=== PATIENT | female | born 1935 | race Caucasian/White ===

== ENCOUNTER 2016-03-12 10:23 | Emergency (ER) | payer OTHER ==
[~2016-03-12] VITALS: Ht 157.5 cm; Wt 56.7 kg
[~2016-03-12 10:23] MED LIST: ACETAMINOPHEN500 MG PO; ADVAIR 100/501 DISK; ADVAIR 250/501 DISK IH; ADVAIR HFA120 INHALA IH; AMBIEN5 MG PO; ANTI-DIARRHEAL2 M2 PO; ASCORBIC ACID500 M3 PO; ASPIR-TRIN325 M1 PO; ASPIRIN EC325 MG PO; ASPIRIN325 MG PO; ATARAX,VISTARIL25 MG PO; ATIVAN0.25 MG GT; ATIVAN0.5 MG PO; ATIVAN1 MG PO; Ambien PO; Ativan PO; BACTRIM,SEPT1 TABLET PO; BUDEPRION XL150 MG PO; BUPROPION HCL150 M2 PO; CARDIZEM CD,CA180 MG PO; CARDIZEM CD120 MG PO; CEFUROXIME500 MG PO; CELEBREX200 MG PO; CELEBREX400 MG PO; CIPRO500 MG PO; CLARITIN10 MG PO; CLOBETASOL PROP60 GM TP; COLACE100 MG PO; CORMAX50 M1 TP; CYCLOBENZAPRINE10 MG PO; CYCLOBENZAPRINE5 MG PO; CYMBALTA60 MG PO; Ceftin PO; Colace PO; DAILY VALUE1 EACH PO; DELTASONE20 M1 PO; DESYREL12.5 MG PO; DICYCLOMINE HCL10 MG PO; DOCUSATE SODIU100 MG PO; DULERA 100 MCG/13 GM IH; DULOXETINE HCL60 MG PO; Dulcolax PO; FAMOTIDINE20 MG PO; FLAGYL500 MG PO; FLEXERIL10 MG PO; FLEXERIL5 MG PO; FOLIC ACID1 MG PO; GABAPENTIN300 MG PO; HYDROCODON-ACE1 EAC7 PO; IBUPROFEN600 MG PO; KEFLEX500 MG PO; LEVAQUIN500 MG PO; LIDOCAINE700 MG TD; LORAZEPAM0.5 MG PO; MECLIZINE HCL12.5 M1 PO; METRONIDAZOLE500 MG PO; MIRAPEX1 MG PO; MOBIC7.5 MG PO; MOTRIN600 MG PO; MOTRIN800 MG PO; MUCINEX ALLERG180 MG PO; MUCINEX600 MG PO; NABUMETONE500 MG PO; NORCO 5/3251 TABLET PO; ONDANSETRON HCL4 MG PO; Oscal 500 w/Vitamin PO; PANTOPRAZOLE SO40 MG PO; PAROXETINE HCL20 MG PO; PAROXETINE HCL25 MG PO; PAXIL CR25 MG PO; PAXIL20 MG PO; PERCOCET 5/31 TABLET PO; POLYETHYLENE GL17 GM PO; PRESERVISIO1 CAPSULE PO; PRESERVISION A1 EAC2 PO; PRESERVISION T1 EACH PO; PRISTIQ50 MG PO; PROAIR HFA8.5 GM IH; PROMETHAZINE12.5 M1 PO; PROTONIX40 MG PO; QUETIAPINE FUMA50 MG PO; REFRESH LI300 DROP/1 BOTH EYES; REFRESH TEARS15 ML BOTH EYES; SENNA LAXATIVE8.6 MG PO; SENNA-TIME S T1 EACH PO; SENNA8.6 M1 PO; SEROQUEL12.5 MG PO; SEROQUEL50 MG PO; SKELAXIN800 MG PO; STOOL SOFTENER100 M1 PO; Senokot S,Pericolace PO; TEMOVATE 0.05%30 GM TP; THERAGRAN1 TABLET PO; TORADOL10 MG PO; TRAMADOL HCL50 MG PO; TRAZODONE; TRAZODONE HCL50 MG PO; TYLENOL EXTRA500 MG PO; TYLENOL REGULA325 MG PO; TYLENOL WITH C1 EACH PO; Theragran PO; ULTRAM50 MG PO; UNABLEOBTAIN; Ultram PO; VENTOLIN HFA18 GM IH; VIBRAMYCIN100 MG PO; WELLBUTRIN SR150 MG PO; WELLBUTRIN XL150 MG PO; Wellbutrin XL PO; ZOFRAN ODT4 MG PO; ZOFRAN ODT8 MG PO; ZOFRAN4 MG PO; ZOLPIDEM TARTRA10 MG PO; ZOLPIDEM TARTRAT5 MG PO
[2016-03-12 10:55] LABS: EOSINOPHIL (%) 1.8 % (0-5); EOSINOPHIL COUNT 0.1 K/uL (0-0.3); HEMATOCRIT 36.2 % (36.0-46.0); LYMPHOCYTE COUNT 1.3 K/uL (1.0-2.8); MCH 30.8 PG (29.0-34.0); MCHC 31.5 G/DL (30.0-36.0); MCV 97.8 FL (83-99); MEAN PLAT.VOLUME 9.7 uM^3 (9.5-12.4); MONOCYTE (%) 13.5 % (3-12); MONOCYTE COUNT 0.5 K/uL (0-0.8); NEUTROPHIL (%) 46.6 % (45-76); NEUTROPHIL COUNT 1.6 K/uL (1.8-6.4); PLATELET COUNT 211 K/uL (156-360); RBC DIS.WIDTH-CV 14.1 % (11.8-14.6); RBC DIS.WIDTH-SD 48.5 % (39-53); WHITE BLOOD COUNT 3.3 K/uL (4.1-10.2)
[2016-03-12 11:07] LABS: CHLORIDE 106 mEq/L (99-109); SODIUM 139 mEq/L (136-147)
[2016-03-12 11:09] LABS: GLUCOSE 102 mg/dL (70-99)
[2016-03-12 11:10] LABS: ANION GAP 8 MEQ/L (2-14)
[2016-03-12 11:11] LABS: TOTAL BILIRUBIN 0.4 mg/dL (0.0-1.0)
[2016-03-12 11:13] LABS: ALKALINE PHOSPHATASE 62 IU/L (3-129); GFR ESTIMATE (CALCULATED) > 59 mL/min/
[2016-03-12 11:14] LABS: UREA NITROGEN (BUN) 9 mg/dL (9-23)
[2016-03-12 11:25] LABS: ADD MIUA? NO; BILIRUBIN NEGATIVE; BLOOD NEGATIVE; COLOR YELLOW ((YELLOW)); GLUCOSE (STRIP) NEGATIVE; KETONES TRACE; LEUKOCYTES NEGATIVE; NITRITE NEGATIVE; PROTEIN (STRIP) NEGATIVE; SPECIFIC GRAVITY 1.015 (1.000-1.030); UCUL ADDED? NO
[2016-03-12] MEDS ORDERED: TRAMADOL HCL50 MG PO (14:03)
[2016-03-12 14:41] VITALS: BP 134/70
== END 2016-03-12 16:13 | disposition home or self-care (01) ==
LOC: EME 10:23
PROVIDERS: Emergency Medicine
DX: M54.5 Low back pain (principal); G89.29 Other chronic pain; F17.200 Nicotine dependence, unspecified, uncomplicated; Z87.442 Personal history of urinary calculi; Z96.641 Presence of right artificial hip joint; Z88.6 Allergy status to analgesic agent; Z71.6 Tobacco abuse counseling
CPT/HCPCS: 80053; 81003; 85025; 99281; 99285; J7030

== ENCOUNTER 2016-03-18 18:29 | Emergency (ER) | payer OTHER ==
[~2016-03-18] VITALS: Ht 157.5 cm; Wt 56.5 kg
[2016-03-18 22:04] LABS: ADD MIUA? NO; BILIRUBIN NEGATIVE; BLOOD NEGATIVE; COLOR YELLOW ((YELLOW)); GLUCOSE (STRIP) NEGATIVE; KETONES 15; LEUKOCYTES NEGATIVE; NITRITE NEGATIVE; PH, URINE 6.5 (5-8); PROTEIN (STRIP) NEGATIVE; SPECIFIC GRAVITY 1.015 (1.000-1.030); UCUL ADDED? NO
[2016-03-18 22:06] LABS: EOSINOPHIL (%) 1.9 % (0-5); EOSINOPHIL COUNT 0.1 K/uL (0-0.3); HEMATOCRIT 38.9 % (36.0-46.0); IMMATURE GRANULOCYTE (%) 0.2 % (0.0-0.7); IMMATURE GRANULOCYTE COUNT 0.1 K/uL; MCH 31.4 PG (29.0-34.0); MCHC 32.1 G/DL (30.0-36.0); MCV 97.7 FL (83-99); MEAN PLAT.VOLUME 9.3 uM^3 (9.5-12.4); MONOCYTE (%) 11.4 % (3-12); MONOCYTE COUNT 0.6 K/uL (0-0.8); NEUTROPHIL (%) 45.3 % (45-76); NEUTROPHIL COUNT 2.2 K/uL (1.8-6.4); PLATELET COUNT 209 K/uL (156-360); RBC DIS.WIDTH-SD 48.3 % (39-53); RED BLOOD COUNT 3.98 M/uL (3.80-5.20); WHITE BLOOD COUNT 4.8 K/uL (4.1-10.2)
[2016-03-18 22:09] LABS: CHLORIDE 104 mEq/L (99-109); POTASSIUM 3.7 mEq/L (3.7-5.4); SODIUM 141 mEq/L (136-147)
[2016-03-18 22:11] LABS: GLUCOSE 86 mg/dL (70-99)
[2016-03-18 22:12] LABS: ANION GAP 14 MEQ/L (2-14)
[2016-03-18 22:13] LABS: AMPHETAMINE NEGATIVE (500 ng/mL); BARBITURATES NEGATIVE (200 ng/mL); BENZODIAZEPINES NEGATIVE (150 ng/mL); COCAINE NEGATIVE (150 ng/mL); INTERNAL CONTROLS VALID? YES; METHADONE NEGATIVE (200 ng/mL); METHAMPHETAMINE NEGATIVE (500 ng/mL); OPIATES (MORPHINE) NEGATIVE (100 ng/mL); OXYCODONE NEGATIVE (100 ng/mL); PHENCYCLIDINE NEGATIVE (25 ng/mL); PROPOXYPHENE NEGATIVE (300 ng/mL); THC CANNABINOIDS NEGATIVE (50 ng/mL); TRICYCLIC ANTIDEPRESSANTS NEGATIVE (300 ng/mL)
[2016-03-18 22:13] LABS: TOTAL BILIRUBIN 0.4 mg/dL (0.0-1.0)
[2016-03-18 22:14] LABS: ALKALINE PHOSPHATASE 80 IU/L (3-129); SERUM ETHYL ALCOHOL < 10 mg/dL
[2016-03-18 22:15] LABS: GFR ESTIMATE (CALCULATED) > 59 mL/min/
[2016-03-18 22:16] LABS: UREA NITROGEN (BUN) 9 mg/dL (9-23)
[2016-03-18 22:24] LABS: TROP-I INTERPRETATION NEGATIVE; TROPONIN-I < 0.01 ng/mL (0.0-0.30)
[2016-03-19 01:42] VITALS: BP 122/60
== END 2016-03-19 01:42 | disposition home or self-care (01) ==
LOC: EME 18:29
PROVIDERS: Emergency Medicine
DX: R44.1 Visual hallucinations (principal); R51 Headache; Z96.641 Presence of right artificial hip joint; Z88.6 Allergy status to analgesic agent; Z88.1 Allergy status to other antibiotic agents; Z88.0 Allergy status to penicillin
CPT/HCPCS: 70450; 80053; 81003; 84443; 84484; 85025; 90839; 93005; 99281; 99283; G0480

== ENCOUNTER 2016-03-28 14:34 | Emergency (ER) | payer OTHER ==
[~2016-03-28] VITALS: Ht 157.5 cm; Wt 56.8 kg
[2016-03-28 16:35] LABS: HEMATOCRIT 38.6 % (36.0-46.0); MCH 31.4 PG (29.0-34.0); MCHC 32.4 G/DL (30.0-36.0); MEAN PLAT.VOLUME 9.9 uM^3 (9.5-12.4); PLATELET COUNT 198 K/uL (156-360); RBC DIS.WIDTH-CV 14.2 % (11.8-14.6); RBC DIS.WIDTH-SD 48.6 % (39-53); RED BLOOD COUNT 3.98 M/uL (3.80-5.20); WHITE BLOOD COUNT 5.9 K/uL (4.1-10.2)
[2016-03-28 16:41] LABS: CHLORIDE 109 mEq/L (99-109); POTASSIUM 4.1 mEq/L (3.7-5.4); SODIUM 142 mEq/L (136-147)
[2016-03-28 16:43] LABS: GLUCOSE 96 mg/dL (70-99)
[2016-03-28 16:45] LABS: ANION GAP 10 MEQ/L (2-14); TOTAL BILIRUBIN 0.3 mg/dL (0.0-1.0)
[2016-03-28 16:47] LABS: ALKALINE PHOSPHATASE 81 IU/L (3-129); GFR ESTIMATE (CALCULATED) > 59 mL/min/
[2016-03-28 16:48] LABS: UREA NITROGEN (BUN) 12 mg/dL (9-23)
[2016-03-28 17:11] LABS: ADD MIUA? YES; BILIRUBIN NEGATIVE; BLOOD NEGATIVE; COLOR YELLOW ((YELLOW)); GLUCOSE (STRIP) NEGATIVE; KETONES NEGATIVE; LEUKOCYTES NEGATIVE; NITRITE NEGATIVE; PH, URINE 6.5 (5-8); PROTEIN (STRIP) TRACE; SPECIFIC GRAVITY 1.023 (1.000-1.030); UROBILINOGEN 0.2 MG/DL (0.2-1.0)
[2016-03-28 17:54] LABS: BACTERIA NONE SEEN; CASTS NONE SEEN /LPF; CRYSTALS NONE SEEN; EPITHELIAL CELLS RARE; MUCUS NONE SEEN; RED BLOOD CELLS RARE /HPF (0-5); UCUL ADDED? NO; WHITE BLOOD CELLS RARE /HPF (0-5)
[2016-03-28] MEDS ORDERED: BENTYL20 MG PO (21:12)
[2016-03-28 22:11] VITALS: BP 151/72
== END 2016-03-28 22:16 | disposition home or self-care (01) ==
LOC: EME 14:34
PROVIDERS: Nurse Practitioner Family
DX: R10.9 Unspecified abdominal pain (principal); K21.9 Gastro-esophageal reflux disease without esophagitis; Z96.641 Presence of right artificial hip joint; Z87.442 Personal history of urinary calculi; F17.200 Nicotine dependence, unspecified, uncomplicated
CPT/HCPCS: 74177; 80053; 81003; 85027; 99281; 99285; J1885

== ENCOUNTER → 2016-05-03 | Outpatient (CLI) | payer OTHER ==
[~2016-05-03] MED LIST changes: +BENTYL20 MG PO
== END | disposition home or self-care (01) ==
LOC: AMB 08:28
DX: J34.89 Other specified disorders of nose and nasal sinuses (principal)
CPT/HCPCS: 88304

== ENCOUNTER 2016-06-07 20:21 | Emergency (ER) | payer OTHER ==
[~2016-06-07] VITALS: Ht 157.5 cm; Wt 58.0 kg
[2016-06-07 22:35] LABS: ADD MIUA? YES; BILIRUBIN NEGATIVE; BLOOD MODERATE; COLOR YELLOW ((YELLOW)); GLUCOSE (STRIP) NEGATIVE; KETONES NEGATIVE; LEUKOCYTES NEGATIVE; NITRITE NEGATIVE; PROTEIN (STRIP) NEGATIVE; SPECIFIC GRAVITY 1.018 (1.000-1.030); UROBILINOGEN 0.2 MG/DL (0.2-1.0)
[2016-06-07 22:40] LABS: BACTERIA RARE /HPF; EPITHELIAL CELLS RARE /HPF; MUCUS NONE SEEN /LPF; RED BLOOD CELLS TNTC /HPF (0-5); UCUL ADDED? NO; WHITE BLOOD CELLS 0-5 /HPF (0-5)
[2016-06-07 23:29] VITALS: BP 130/72
== END 2016-06-08 00:14 | disposition home or self-care (01) ==
LOC: EME 20:21
PROVIDERS: Emergency Medicine
DX: R07.81 Pleurodynia (principal); M54.5 Low back pain; M25.561 Pain in right knee; G89.29 Other chronic pain; X50.9XXA Other and unspecified overexertion or strenuous movements or postures, initial encounter; Z88.1 Allergy status to other antibiotic agents; Z88.6 Allergy status to analgesic agent; F17.200 Nicotine dependence, unspecified, uncomplicated
CPT/HCPCS: 71101; 72110; 81003; 99281; 99284; J3010

== ENCOUNTER 2016-06-18 13:26 | Emergency (ER) | payer OTHER ==
[~2016-06-18] VITALS: Ht 157.5 cm; Wt 57.6 kg
[2016-06-18 15:14] VITALS: BP 120/74
== END 2016-06-18 15:18 | disposition home or self-care (01) ==
LOC: EME 13:26
DX: M25.561 Pain in right knee (principal); M54.5 Low back pain; M25.461 Effusion, right knee; M54.2 Cervicalgia; R35.8 Other polyuria; R06.00 Dyspnea, unspecified; G89.29 Other chronic pain; Z72.0 Tobacco use
CPT/HCPCS: 99281; 99284

== ENCOUNTER 2016-06-20 17:55 | Emergency (ER) | payer OTHER ==
[~2016-06-20] VITALS: Ht 157.5 cm; Wt 56.3 kg
[2016-06-20 19:29] LABS: HEMATOCRIT 36.9 % (36.0-46.0); MCH 32.3 PG (29.0-34.0); MCHC 32.2 G/DL (30.0-36.0); MCV 100.3 FL (83-99); MEAN PLAT.VOLUME 9.3 uM^3 (9.5-12.4); PLATELET COUNT 220 K/uL (156-360); RBC DIS.WIDTH-CV 13.2 % (11.8-14.6); RBC DIS.WIDTH-SD 49.5 % (39-53); RED BLOOD COUNT 3.68 M/uL (3.80-5.20); WHITE BLOOD COUNT 5.2 K/uL (4.1-10.2)
[2016-06-20 19:53] LABS: CHLORIDE 107 mEq/L (99-109); POTASSIUM 3.9 mEq/L (3.7-5.4); SODIUM 142 mEq/L (136-147)
[2016-06-20 19:55] LABS: GLUCOSE 100 mg/dL (70-99)
[2016-06-20 19:56] LABS: ANION GAP 11 MEQ/L (2-14)
[2016-06-20 19:57] LABS: TOTAL BILIRUBIN 0.6 mg/dL (0.0-1.0)
[2016-06-20 19:58] LABS: ALKALINE PHOSPHATASE 65 IU/L (3-129)
[2016-06-20 19:59] LABS: GFR ESTIMATE (CALCULATED) > 59 mL/min/
[2016-06-20 20:00] LABS: UREA NITROGEN (BUN) 16 mg/dL (9-23)
[2016-06-20 20:02] LABS: LIPASE 12 U/L (1.0-51.0)
[2016-06-20 20:18] LABS: ADD MIUA? YES; BILIRUBIN NEGATIVE; BLOOD NEGATIVE; COLOR YELLOW ((YELLOW)); GLUCOSE (STRIP) NEGATIVE; KETONES 5; LEUKOCYTES NEGATIVE; NITRITE NEGATIVE; PROTEIN (STRIP) 30
[2016-06-20 20:32] LABS: BACTERIA NONE SEEN /HPF; EPITHELIAL CELLS RARE /HPF; HYALINE CASTS 0-5 /LPF; MUCUS 2+ /LPF; UCUL ADDED? NO; WHITE BLOOD CELLS 0-5 /HPF (0-5)
[2016-06-20 22:33] VITALS: BP 138/82
== END 2016-06-20 22:34 | disposition home or self-care (01) ==
LOC: EME 17:55
DX: G89.29 Other chronic pain (principal); M79.1 Myalgia; R30.0 Dysuria; J44.9 Chronic obstructive pulmonary disease, unspecified; Z72.0 Tobacco use; Z87.442 Personal history of urinary calculi; K21.9 Gastro-esophageal reflux disease without esophagitis; Z85.22 Personal history of malignant neoplasm of nasal cavities, middle ear, and accessory sinuses; Z88.5 Allergy status to narcotic agent; Z88.8 Allergy status to other drugs, medicaments and biological substances; Z88.1 Allergy status to other antibiotic agents; Z88.0 Allergy status to penicillin; Z88.6 Allergy status to analgesic agent
CPT/HCPCS: 80053; 81003; 83690; 85027; 99281; 99284; J7030

== ENCOUNTER 2016-07-25 22:04 | Emergency (ER) | payer OTHER ==
[~2016-07-25] VITALS: Ht 157.5 cm; Wt 57.5 kg
[2016-07-26] MEDS ORDERED: ULTRAM50 MG PO (00:08)
[2016-07-26 00:26] VITALS: BP 110/76
== END 2016-07-26 00:27 | disposition home or self-care (01) ==
LOC: EME 22:04
DX: M25.561 Pain in right knee (principal); M25.551 Pain in right hip; Z96.653 Presence of artificial knee joint, bilateral; Z96.641 Presence of right artificial hip joint; M25.461 Effusion, right knee
CPT/HCPCS: 73502; 73564; 99281; 99283

== ENCOUNTER 2016-08-02 18:50 | Emergency (ER) | payer OTHER ==
[~2016-08-02] VITALS: Ht 157.5 cm; Wt 57.6 kg
[2016-08-02 19:25] LABS: HEMATOCRIT 37.2 % (36.0-46.0); MCH 32.6 PG (29.0-34.0); MCHC 32.5 G/DL (30.0-36.0); MCV 100.3 FL (83-99); MEAN PLAT.VOLUME 9.8 uM^3 (9.5-12.4); PLATELET COUNT 215 K/uL (156-360); RBC DIS.WIDTH-CV 12.6 % (11.8-14.6); RBC DIS.WIDTH-SD 46.7 % (39-53); RED BLOOD COUNT 3.71 M/uL (3.80-5.20); WHITE BLOOD COUNT 5.6 K/uL (4.1-10.2)
[2016-08-02 19:37] LABS: CHLORIDE 103 mEq/L (99-109); POTASSIUM 3.5 mEq/L (3.7-5.4); SODIUM 141 mEq/L (136-147)
[2016-08-02 19:39] LABS: GLUCOSE 80 mg/dL (70-99)
[2016-08-02 19:40] LABS: ANION GAP 13 MEQ/L (2-14)
[2016-08-02 19:42] LABS: GFR ESTIMATE (CALCULATED) > 59 mL/min/
[2016-08-02 19:43] LABS: UREA NITROGEN (BUN) 8 mg/dL (9-23)
[2016-08-02 21:02] LABS: ERTH.SED.RATE 25 MM/HR (0-30)
[2016-08-02 23:47] VITALS: BP 136/96
== END 2016-08-02 23:47 | disposition home or self-care (01) ==
LOC: EME → EDBD 18:50 → EME 18:50
PROVIDERS: Emergency Medicine
DX: G44.209 Tension-type headache, unspecified, not intractable (principal); R13.10 Dysphagia, unspecified; Z88.0 Allergy status to penicillin; Z88.6 Allergy status to analgesic agent; F17.200 Nicotine dependence, unspecified, uncomplicated
CPT/HCPCS: 70450; 80048; 85027; 85651; 87651 90; 99281; 99284; J1200; J2765

== ENCOUNTER 2016-08-09 10:55 | Emergency (ER) | payer OTHER ==
[~2016-08-09] VITALS: Ht 157.5 cm; Wt 54.1 kg
[2016-08-09 13:26] LABS: EOSINOPHIL (%) 0.5 % (0-5); HEMATOCRIT 42.8 % (36.0-46.0); IMMATURE GRANULOCYTE (%) 0.3 % (0.0-0.7); INSTRUMENT ABS NEUTROPHIL CT 4.2 K/uL; LYMPHOCYTE COUNT 1.2 K/uL (1.0-2.8); MCH 31.9 PG (29.0-34.0); MCV 99.5 FL (83-99); MEAN PLAT.VOLUME 9.7 uM^3 (9.5-12.4); MONOCYTE (%) 11.1 % (3-12); MONOCYTE COUNT 0.7 K/uL (0-0.8); NEUTROPHIL (%) 67.9 % (45-76); NEUTROPHIL COUNT 4.2 K/uL (1.8-6.4); PLATELET COUNT 192 K/uL (156-360); RBC DIS.WIDTH-CV 12.6 % (11.8-14.6); RBC DIS.WIDTH-SD 46.8 % (39-53); WHITE BLOOD COUNT 6.2 K/uL (4.1-10.2)
[2016-08-09 13:43] LABS: CHLORIDE 105 mEq/L (99-109); POTASSIUM 3.6 mEq/L (3.7-5.4); SODIUM 140 mEq/L (136-147)
[2016-08-09 13:45] LABS: GLUCOSE 91 mg/dL (70-99)
[2016-08-09 13:46] LABS: ANION GAP 12 MEQ/L (2-14)
[2016-08-09 13:47] LABS: TOTAL BILIRUBIN 0.6 mg/dL (0.0-1.0)
[2016-08-09 13:48] LABS: ALKALINE PHOSPHATASE 62 IU/L (3-129)
[2016-08-09 13:49] LABS: GFR ESTIMATE (CALCULATED) > 59 mL/min/
[2016-08-09 13:50] LABS: UREA NITROGEN (BUN) 10 mg/dL (9-23)
[2016-08-09 13:52] LABS: LIPASE 19 U/L (1.0-51.0)
[2016-08-09 13:58] LABS: TROP-I INTERPRETATION NEGATIVE; TROPONIN-I < 0.01 ng/mL (0.0-0.30)
[2016-08-09 14:30] LABS: BILIRUBIN NEGATIVE; BLOOD NEGATIVE; COLOR YELLOW ((YELLOW)); GLUCOSE (STRIP) NEGATIVE; KETONES 20; LEUKOCYTES NEGATIVE; NITRITE NEGATIVE; PROTEIN (STRIP) NEGATIVE; SPECIFIC GRAVITY 1.012 (1.000-1.030); UROBILINOGEN 0.2 MG/DL (0.2-1.0)
[2016-08-09 14:34] LABS: ADD MIUA? NO; UCUL ADDED? NO
[2016-08-09 19:17] VITALS: BP 116/69
== END 2016-08-09 19:19 | disposition home or self-care (01) ==
LOC: EME 10:55
PROVIDERS: Emergency Medicine
DX: R13.10 Dysphagia, unspecified (principal); G89.29 Other chronic pain; R10.30 Lower abdominal pain, unspecified; M54.9 Dorsalgia, unspecified; K21.9 Gastro-esophageal reflux disease without esophagitis; Z87.442 Personal history of urinary calculi; Z88.6 Allergy status to analgesic agent; Z88.1 Allergy status to other antibiotic agents; Z88.0 Allergy status to penicillin; Z87.891 Personal history of nicotine dependence; Z96.641 Presence of right artificial hip joint; Z88.5 Allergy status to narcotic agent
CPT/HCPCS: 74177; 80053; 81003; 83690; 84484; 85025; 92610 GN; 93005; 99281; 99285; J7040

== ENCOUNTER 2016-08-16 11:16 | Observation (INO) | payer OTHER ==
[~2016-08-16] VITALS: Ht 157.5 cm; Wt 56.6 kg
[2016-08-16 12:33] LABS: EOSINOPHIL COUNT 0.1 K/uL (0-0.3); HEMATOCRIT 43.3 % (36.0-46.0); IMMATURE GRANULOCYTE (%) 0.2 % (0.0-0.7); INSTRUMENT ABS NEUTROPHIL CT 3.4 K/uL; MCH 32.3 PG (29.0-34.0); MCHC 32.3 G/DL (30.0-36.0); MCV 99.8 FL (83-99); MEAN PLAT.VOLUME 11.3 uM^3 (9.5-12.4); MONOCYTE (%) 8.7 % (3-12); MONOCYTE COUNT 0.4 K/uL (0-0.8); NEUTROPHIL (%) 70.2 % (45-76); NEUTROPHIL COUNT 3.4 K/uL (1.8-6.4); PLATELET COUNT 234 K/uL (156-360); RBC DIS.WIDTH-CV 12.3 % (11.8-14.6); RBC DIS.WIDTH-SD 45.7 % (39-53); RED BLOOD COUNT 4.34 M/uL (3.80-5.20); WHITE BLOOD COUNT 4.8 K/uL (4.1-10.2)
[2016-08-16 13:31] LABS: CHLORIDE 104 mEq/L (99-109); SODIUM 140 mEq/L (136-147)
[2016-08-16 13:33] LABS: GLUCOSE 88 mg/dL (70-99); POTASSIUM 4.5 mEq/L (3.7-5.4)
[2016-08-16 13:34] LABS: ANION GAP 13 MEQ/L (2-14)
[2016-08-16 13:35] LABS: TOTAL BILIRUBIN 0.5 mg/dL (0.0-1.0)
[2016-08-16 13:37] LABS: ALKALINE PHOSPHATASE 65 IU/L (3-129); GFR ESTIMATE (CALCULATED) > 59 mL/min/
[2016-08-16 13:38] LABS: UREA NITROGEN (BUN) 11 mg/dL (9-23)
[2016-08-16 17:32] LABS: ADD MIUA? YES; BILIRUBIN NEGATIVE; BLOOD SMALL; COLOR YELLOW ((YELLOW)); GLUCOSE (STRIP) NEGATIVE; KETONES 80; LEUKOCYTES NEGATIVE; NITRITE NEGATIVE; PROTEIN (STRIP) NEGATIVE; SPECIFIC GRAVITY 1.013 (1.000-1.030); UROBILINOGEN 0.2 MG/DL (0.2-1.0)
[2016-08-16 17:49] LABS: BACTERIA RARE /HPF; EPITHELIAL CELLS RARE /HPF; MUCUS TRACE /LPF; RED BLOOD CELLS 0-5 /HPF (0-5); UCUL ADDED? NO; WHITE BLOOD CELLS 0-5 /HPF (0-5)
[2016-08-16] MEDS ORDERED: CYMBALTA60 MG PO (20:40)
[2016-08-16] MEDS ORDERED: PRESERVISION T1 EACH PO (20:41)
[2016-08-16] MEDS ORDERED: TYLENOL ARTHRI650 MG PO (20:41)
[2016-08-16] MEDS ORDERED: DULERA 100 MCG/13 GM IH (20:42)
[2016-08-16] MEDS ORDERED: REFRESH TEARS15 ML BOTH EYES (20:42)
[2016-08-16] MEDS ORDERED: DULERA 200 MCG/13 GM IH (20:43)
[2016-08-16] MEDS ORDERED: CLOBETASOL PROP60 GM TP (20:43)
[2016-08-16] MEDS ORDERED: PROAIR HFA8.5 GM IH (20:44)
[2016-08-16] MEDS ORDERED: LORAZEPAM0.5 MG PO (20:45)
[2016-08-16] MEDS ORDERED: SENOKOT,SENN1 TABLET PO (20:46)
[2016-08-16] MEDS ORDERED: MELATONIN10 M1 PO (20:46)
[2016-08-17 00:03] VITALS: BP 132/72
[2016-08-17 08:25] VITALS: BP 120/67
[2016-08-17 15:20] VITALS: BP 110/64
[2016-08-18] VITALS: BP 111/57
[2016-08-18 03:48] VITALS: BP 111/57
[2016-08-18 08:06] VITALS: BP 128/63
[2016-08-18 16:05] VITALS: BP 128/68
[2016-08-18 18:36] LABS: ADD MIUA? YES; BILIRUBIN NEGATIVE; BLOOD LARGE; COLOR YELLOW ((YELLOW)); GLUCOSE (STRIP) NEGATIVE; KETONES NEGATIVE; LEUKOCYTES NEGATIVE; NITRITE NEGATIVE; PROTEIN (STRIP) NEGATIVE; SPECIFIC GRAVITY 1.014 (1.000-1.030); UROBILINOGEN 0.2 MG/DL (0.2-1.0)
[2016-08-18 18:51] LABS: BACTERIA RARE /HPF; CALCIUM OXALATE CRYSTALS 2+ /HPF; EPITHELIAL CELLS RARE /HPF; MUCUS TRACE /LPF; RED BLOOD CELLS TNTC /HPF (0-5); WHITE BLOOD CELLS 0-5 /HPF (0-5)
[2016-08-18 23:57] VITALS: BP 112/58
[2016-08-19 08:08] VITALS: BP 117/64
[2016-08-19 15:14] VITALS: BP 110/68
[2016-08-19 23:40] VITALS: BP 121/74
[2016-08-20 08:00] VITALS: BP 132/77
[2016-08-20 15:37] VITALS: BP 121/67
[2016-08-20] MEDS ORDERED: ZOLPIDEM TARTRAT5 MG PO (15:40)
[2016-08-20] MEDS ORDERED: LORAZEPAM0.5 MG PO (15:40)
== END 2016-08-20 16:06 ==
LOC: EME 11:16 → 5SOUTH 22:40 → EDOF 22:40 → 5SOUTH 23:38
PROVIDERS: Emergency Medicine; Internal Medicine
DX: R62.7 Adult failure to thrive (principal); R53.1 Weakness; J44.9 Chronic obstructive pulmonary disease, unspecified; M54.5 Low back pain; I47.1 Supraventricular tachycardia; R52 Pain, unspecified; F32.9 Major depressive disorder, single episode, unspecified; K21.9 Gastro-esophageal reflux disease without esophagitis; G43.909 Migraine, unspecified, not intractable, without status migrainosus; F60.3 Borderline personality disorder; F03.90 Unspecified dementia, unspecified severity, without behavioral disturbance, psychotic disturbance, mood disturbance, and anxiety; Z96.659 Presence of unspecified artificial knee joint; F41.9 Anxiety disorder, unspecified; F09 Unspecified mental disorder due to known physiological condition; R21 Rash and other nonspecific skin eruption; Z87.891 Personal history of nicotine dependence
CPT/HCPCS: 71010; 80053; 81003; 85025; 93005; 94640; 94640 76; 99202; 99281; 99285; G0378; G8978 GP CI; G8979 GP CH; G8987 GO CI; G8988 GO CH; J1644; J1885; J7030

== ENCOUNTER 2016-09-05 14:10 | Emergency (ER) | payer OTHER ==
[~2016-09-05] VITALS: Ht 160 cm; Wt 60.0 kg
[~2016-09-05 14:10] MED LIST changes: +DULERA 200 MCG/13 GM IH; +MELATONIN10 M1 PO; +SENOKOT,SENN1 TABLET PO; +TYLENOL ARTHRI650 MG PO
[2016-09-05 17:28] VITALS: BP 128/67
== END 2016-09-05 17:29 | disposition home or self-care (01) ==
LOC: EME 14:10
DX: G89.29 Other chronic pain (principal); M54.5 Low back pain; Z79.891 Long term (current) use of opiate analgesic; K21.9 Gastro-esophageal reflux disease without esophagitis; F32.9 Major depressive disorder, single episode, unspecified; Z87.442 Personal history of urinary calculi; Z85.22 Personal history of malignant neoplasm of nasal cavities, middle ear, and accessory sinuses; Z90.49 Acquired absence of other specified parts of digestive tract; Z87.891 Personal history of nicotine dependence; Z88.0 Allergy status to penicillin; Z88.5 Allergy status to narcotic agent; Z96.641 Presence of right artificial hip joint
CPT/HCPCS: 99281; 99284

== ENCOUNTER 2016-10-23 22:20 | Emergency (ER) | payer OTHER ==
[~2016-10-23] VITALS: Ht 157.5 cm; Wt 60.1 kg
[2016-10-24 02:29] VITALS: BP 146/70
== END 2016-10-24 02:31 | disposition home or self-care (01) ==
LOC: EME 22:20
DX: R22.41 Localized swelling, mass and lump, right lower limb (principal); J45.909 Unspecified asthma, uncomplicated; Z87.442 Personal history of urinary calculi; Z96.641 Presence of right artificial hip joint; Z87.891 Personal history of nicotine dependence; Z88.6 Allergy status to analgesic agent; Z88.5 Allergy status to narcotic agent
CPT/HCPCS: 93971; 99281; 99285

== ENCOUNTER 2016-11-11 10:48 | Emergency (ER) | payer OTHER ==
[~2016-11-11] VITALS: Ht 157.5 cm; Wt 54.4 kg
[2016-11-11 11:50] LABS: MCHC 32.2 G/DL (30.0-36.0); MCV 99.4 FL (83-99); PLATELET COUNT 220 K/uL (156-360); RBC DIS.WIDTH-CV 12.4 % (11.8-14.6); RBC DIS.WIDTH-SD 45.7 % (39-53); RED BLOOD COUNT 3.62 M/uL (3.80-5.20); WHITE BLOOD COUNT 4.7 K/uL (4.1-10.2)
[2016-11-11 11:59] LABS: CHLORIDE 108 mEq/L (99-109); POTASSIUM 4.1 mEq/L (3.7-5.4); SODIUM 143 mEq/L (136-147)
[2016-11-11 12:00] LABS: GLUCOSE 89 mg/dL (70-99)
[2016-11-11 12:02] LABS: ANION GAP 10 MEQ/L (2-14)
[2016-11-11 12:04] LABS: GFR ESTIMATE (CALCULATED) > 59 mL/min/
[2016-11-11 12:05] LABS: UREA NITROGEN (BUN) 12 mg/dL (9-23)
[2016-11-11 12:36] LABS: ADD MIUA? YES; BILIRUBIN NEGATIVE; BLOOD NEGATIVE; COLOR YELLOW ((YELLOW)); GLUCOSE (STRIP) NEGATIVE; KETONES NEGATIVE; LEUKOCYTES TRACE; NITRITE NEGATIVE; PROTEIN (STRIP) NEGATIVE; SPECIFIC GRAVITY 1.013 (1.000-1.030); UROBILINOGEN 0.2 MG/DL (0.2-1.0)
[2016-11-11 12:38] VITALS: BP 123/73
[2016-11-11 12:41] LABS: BACTERIA RARE /HPF; CALCIUM OXALATE CRYSTALS 2+ /HPF; EPITHELIAL CELLS RARE /HPF; MUCUS TRACE /LPF; RED BLOOD CELLS 0-5 /HPF (0-5); UCUL ADDED? NO; WHITE BLOOD CELLS 0-5 /HPF (0-5)
== END 2016-11-11 15:39 | disposition home or self-care (01) ==
LOC: EME 10:48
PROVIDERS: Emergency Medicine
DX: G89.29 Other chronic pain (principal); M54.5 Low back pain; E86.0 Dehydration; L40.9 Psoriasis, unspecified; J45.909 Unspecified asthma, uncomplicated; K21.9 Gastro-esophageal reflux disease without esophagitis; M41.9 Scoliosis, unspecified; F03.90 Unspecified dementia, unspecified severity, without behavioral disturbance, psychotic disturbance, mood disturbance, and anxiety; F32.9 Major depressive disorder, single episode, unspecified; F41.9 Anxiety disorder, unspecified; Z96.641 Presence of right artificial hip joint; Z87.442 Personal history of urinary calculi; Z87.891 Personal history of nicotine dependence; Z88.0 Allergy status to penicillin; Z60.2 Problems related to living alone
CPT/HCPCS: 80048; 81003; 85027; 86850; 86900; 86901; 93005; 99281; 99285; J2405; J7030; Q0177

== ENCOUNTER → 2016-11-24 | Outpatient (CLI) | payer OTHER | END | disposition home or self-care (01) | DX: R13.11 Dysphagia, oral phase (principal); R13.13 Dysphagia, pharyngeal phase; K21.9 Gastro-esophageal reflux disease without esophagitis | CPT/HCPCS: 92611 GN; G8996 GN; G8997 GN; G8998 GN ==

== ENCOUNTER → 2017-02-02 | Outpatient (CLI) | payer OTHER ==
[~2017-02-02] VITALS: Ht 157.5 cm; Wt 58.0 kg
[~2017-02-02] MED LIST changes: +CYANOCOBAL1000 MCG/2 IM; +DIPROSONE 0.05%15 GM TP; +MICROZIDE12.5 M1 PO; +REMERON15 M2 PO; +ULTRACET1 TABLET PO
== END | disposition home or self-care (01) ==
LOC: AMB 09:30 → OPR 02-08 10:00 → AMB 02-08 10:00
DX: K22.2 Esophageal obstruction (principal); K21.9 Gastro-esophageal reflux disease without esophagitis; I10 Essential (primary) hypertension; J44.9 Chronic obstructive pulmonary disease, unspecified; F41.8 Other specified anxiety disorders; D51.9 Vitamin B12 deficiency anemia, unspecified; F17.200 Nicotine dependence, unspecified, uncomplicated; Z88.0 Allergy status to penicillin
CPT/HCPCS: 88305; J1885

== ENCOUNTER → 2017-04-19 | Outpatient (CLI) | payer OTHER ==
[~2017-04-19] VITALS: Ht 157.5 cm; Wt 58.1 kg
== END | disposition home or self-care (01) ==
LOC: AMB 04-13 08:00 → OPR 04-13 09:30 → AMB 10:45
PROC: 0D738ZZ Dilation of Lower Esophagus, Via Natural or Artificial Opening Endoscopic (ICD-10-PCS; principal; 2017-04-19)
DX: K22.2 Esophageal obstruction (principal); K44.9 Diaphragmatic hernia without obstruction or gangrene; R13.10 Dysphagia, unspecified; K21.9 Gastro-esophageal reflux disease without esophagitis; I10 Essential (primary) hypertension; M19.90 Unspecified osteoarthritis, unspecified site; F17.200 Nicotine dependence, unspecified, uncomplicated; L40.9 Psoriasis, unspecified; E53.8 Deficiency of other specified B group vitamins; Z96.641 Presence of right artificial hip joint; Z96.653 Presence of artificial knee joint, bilateral; Z96.619 Presence of unspecified artificial shoulder joint; Z82.3 Family history of stroke; Z83.3 Family history of diabetes mellitus; Z88.1 Allergy status to other antibiotic agents; Z88.5 Allergy status to narcotic agent; Z88.8 Allergy status to other drugs, medicaments and biological substances

== ENCOUNTER → 2017-06-08 | Outpatient (CLI) | payer OTHER ==
[~2017-06-08] VITALS: Ht 157.5 cm; Wt 64.0 kg
[~2017-06-08] MED LIST changes: +ACID REDUCER20 MG PO; +CYANOCOBALAM1000 MCG PO; +DUONEB 2.5-0.5 M3 ML AEROSOL; +HYDROCHLOROTHIA25 MG PO; +LIDODERM 5% P1 PATCH TD; -MICROZIDE12.5 M1 PO; +REFRESH CONTACT12 ML BOTH EYES; +TEMOVATE 0.05%60 GM TP
== END | disposition home or self-care (01) ==
LOC: AMB 08:44
DX: K22.2 Esophageal obstruction (principal); K44.9 Diaphragmatic hernia without obstruction or gangrene; R13.10 Dysphagia, unspecified; K21.9 Gastro-esophageal reflux disease without esophagitis; D64.9 Anemia, unspecified; J44.9 Chronic obstructive pulmonary disease, unspecified; I10 Essential (primary) hypertension; K12.0 Recurrent oral aphthae; K58.9 Irritable bowel syndrome, unspecified; F17.200 Nicotine dependence, unspecified, uncomplicated; Z82.3 Family history of stroke; Z83.3 Family history of diabetes mellitus; Z88.5 Allergy status to narcotic agent; Z88.1 Allergy status to other antibiotic agents; Z88.8 Allergy status to other drugs, medicaments and biological substances
CPT/HCPCS: 93005

== ENCOUNTER 2017-06-11 18:29 | Emergency (ER) | payer OTHER ==
[~2017-06-11] VITALS: Ht 157.5 cm; Wt 68.5 kg
[2017-06-11 19:42] LABS: HEMATOCRIT 32.5 % (36.0-46.0); HEMOGLOBIN 10.6 G/DL (11.9-15.5); MCH 32.3 PG (29.0-34.0); MCHC 32.6 G/DL (30.0-36.0); MCV 99.1 FL (83-99); PLATELET COUNT 290 K/uL (156-360); RBC DIS.WIDTH-CV 13.2 % (11.8-14.6); RBC DIS.WIDTH-SD 48.3 % (39-53); RED BLOOD COUNT 3.28 M/uL (3.80-5.20); WHITE BLOOD COUNT 6.1 K/uL (4.1-10.2)
[2017-06-11 20:07] LABS: TROP-I INTERPRETATION NEGATIVE; TROPONIN-I < 0.01 ng/mL (0.0-0.30)
[2017-06-11 20:17] LABS: ALBUMIN 3.8 g/dL (3.2-4.8); CHLORIDE 108 mEq/L (99-109); POTASSIUM 4.2 mEq/L (3.7-5.4); SODIUM 143 mEq/L (136-147)
[2017-06-11 20:19] LABS: GLUCOSE 84 mg/dL (70-99); TOTAL PROTEIN 6.3 g/dL (6.4-8.3)
[2017-06-11 20:21] LABS: TOTAL BILIRUBIN 0.1 mg/dL (0.0-1.0)
[2017-06-11 20:23] LABS: ALKALINE PHOSPHATASE 85 IU/L (3-129); CREATININE 0.8 mg/dL (0.6-1.3); GFR ESTIMATE (CALCULATED) > 59 mL/min/
[2017-06-11 20:24] LABS: AST (GOT) 17 IU/L (2-34); UREA NITROGEN (BUN) 18 mg/dL (9-23)
[2017-06-11 20:26] LABS: ALT (GPT) 9 IU/L (3-49); LIPASE 27 U/L (1.0-51.0)
[2017-06-11 20:49] LABS: APPEARANCE CLEAR ((CLEAR)); BILIRUBIN NEGATIVE; BLOOD NEGATIVE; COLOR YELLOW ((YELLOW)); GLUCOSE (STRIP) NEGATIVE; KETONES NEGATIVE; LEUKOCYTES NEGATIVE; NITRITE NEGATIVE; PROTEIN (STRIP) NEGATIVE; SPECIFIC GRAVITY 1.017 (1.000-1.030); UCUL ADDED? NO; UROBILINOGEN 0.2 MG/DL (0.2-1.0)
[2017-06-11 23:52] VITALS: BP 132/86
== END 2017-06-11 23:53 | disposition home or self-care (01) ==
LOC: EME 18:29
PROVIDERS: Physician Assistant
DX: R10.9 Unspecified abdominal pain (principal); N20.0 Calculus of kidney; Z87.442 Personal history of urinary calculi; K21.9 Gastro-esophageal reflux disease without esophagitis; F03.90 Unspecified dementia, unspecified severity, without behavioral disturbance, psychotic disturbance, mood disturbance, and anxiety; M41.9 Scoliosis, unspecified; F41.9 Anxiety disorder, unspecified; M06.9 Rheumatoid arthritis, unspecified; Z96.641 Presence of right artificial hip joint; J45.909 Unspecified asthma, uncomplicated; F17.200 Nicotine dependence, unspecified, uncomplicated; Z88.5 Allergy status to narcotic agent; Z88.6 Allergy status to analgesic agent; Z88.1 Allergy status to other antibiotic agents; Z88.0 Allergy status to penicillin
CPT/HCPCS: 71046; 74177; 80053; 81003; 83690; 84484; 85027; 93005; 99281; 99285; J1100; J1885; J7120

== ENCOUNTER 2017-06-13 10:46 | Emergency (ER) | payer OTHER ==
[~2017-06-13] VITALS: Ht 157.5 cm; Wt 68.5 kg
[2017-06-13 11:36] LABS: BASOPHIL (%) 0.2 % (0-1); EOSINOPHIL (%) 1.2 % (0-5); EOSINOPHIL COUNT 0.1 K/uL (0-0.3); HEMATOCRIT 30.1 % (36.0-46.0); HEMOGLOBIN 9.7 G/DL (11.9-15.5); IMMATURE GRANULOCYTE (%) 0.4 % (0.0-0.7); LYMPHOCYTE (%) 20.1 % (15-42); MCH 32.1 PG (29.0-34.0); MCHC 32.2 G/DL (30.0-36.0); MCV 99.7 FL (83-99); MONOCYTE (%) 13.7 % (3-12); MONOCYTE COUNT 1.3 K/uL (0-0.8); NEUTROPHIL (%) 64.4 % (45-76); NEUTROPHIL COUNT 6.3 K/uL (1.8-6.4); PLATELET COUNT 250 K/uL (156-360); RBC DIS.WIDTH-CV 13.5 % (11.8-14.6); RBC DIS.WIDTH-SD 49.1 % (39-53); RED BLOOD COUNT 3.02 M/uL (3.80-5.20); WHITE BLOOD COUNT 9.8 K/uL (4.1-10.2)
[2017-06-13 11:44] LABS: CHLORIDE 109 mEq/L (99-109); POTASSIUM 4.1 mEq/L (3.7-5.4); SODIUM 143 mEq/L (136-147)
[2017-06-13 11:46] LABS: GLUCOSE 86 mg/dL (70-99)
[2017-06-13 11:49] LABS: CREATININE 0.7 mg/dL (0.6-1.3); GFR ESTIMATE (CALCULATED) > 59 mL/min/
[2017-06-13 11:50] LABS: UREA NITROGEN (BUN) 15 mg/dL (9-23)
[2017-06-13 11:57] LABS: TROP-I INTERPRETATION NEGATIVE; TROPONIN-I < 0.01 ng/mL (0.0-0.30)
[2017-06-13 15:21] VITALS: BP 134/78
== END 2017-06-13 15:49 | disposition home or self-care (01) ==
LOC: EME 10:46
PROVIDERS: Emergency Medicine
DX: R07.89 Other chest pain (principal); J44.9 Chronic obstructive pulmonary disease, unspecified; F17.200 Nicotine dependence, unspecified, uncomplicated; F03.90 Unspecified dementia, unspecified severity, without behavioral disturbance, psychotic disturbance, mood disturbance, and anxiety; K21.9 Gastro-esophageal reflux disease without esophagitis; M06.9 Rheumatoid arthritis, unspecified; Z96.641 Presence of right artificial hip joint; Z88.5 Allergy status to narcotic agent; Z88.6 Allergy status to analgesic agent; Z88.1 Allergy status to other antibiotic agents
CPT/HCPCS: 71045; 71275; 80048; 83880; 84484; 85025; 93005; 99281; 99284; J1885

== ENCOUNTER 2017-06-28 09:32 | Emergency (ER) | payer OTHER ==
[~2017-06-28] VITALS: Ht 157.5 cm; Wt 68.5 kg
[2017-06-28 14:03] VITALS: BP 138/79
== END 2017-06-28 14:04 | disposition home or self-care (01) ==
LOC: EME 09:32
DX: S20.211A Contusion of right front wall of thorax, initial encounter (principal); W01.0XXA Fall on same level from slipping, tripping and stumbling without subsequent striking against object, initial encounter; F03.90 Unspecified dementia, unspecified severity, without behavioral disturbance, psychotic disturbance, mood disturbance, and anxiety; J45.909 Unspecified asthma, uncomplicated; Z87.442 Personal history of urinary calculi; Z88.0 Allergy status to penicillin; Z90.49 Acquired absence of other specified parts of digestive tract; F17.200 Nicotine dependence, unspecified, uncomplicated
CPT/HCPCS: 71100; 99281; 99285; J1885; J7040

== ENCOUNTER 2017-07-21 12:57 | Observation (INO) | payer OTHER ==
[~2017-07-21] VITALS: Ht 157.5 cm; Wt 56.8 kg
[2017-07-21 14:44] LABS: BASOPHIL (%) 0.2 % (0-1); EOSINOPHIL (%) 0.5 % (0-5); HEMATOCRIT 35.8 % (36.0-46.0); HEMOGLOBIN 11.3 G/DL (11.9-15.5); IMMATURE GRANULOCYTE (%) 0.5 % (0.0-0.7); LYMPHOCYTE (%) 23.4 % (15-42); LYMPHOCYTE COUNT 1.4 K/uL (1.0-2.8); MCHC 31.6 G/DL (30.0-36.0); MCV 98.4 FL (83-99); MONOCYTE (%) 13.3 % (3-12); MONOCYTE COUNT 0.8 K/uL (0-0.8); NEUTROPHIL (%) 62.1 % (45-76); NEUTROPHIL COUNT 3.7 K/uL (1.8-6.4); PLATELET COUNT 346 K/uL (156-360); RBC DIS.WIDTH-CV 13.6 % (11.8-14.6); RBC DIS.WIDTH-SD 49.2 % (39-53); RED BLOOD COUNT 3.64 M/uL (3.80-5.20); WHITE BLOOD COUNT 5.9 K/uL (4.1-10.2)
[2017-07-21 14:51] LABS: APPEARANCE CLEAR ((CLEAR)); BILIRUBIN NEGATIVE; BLOOD NEGATIVE; COLOR YELLOW ((YELLOW)); GLUCOSE (STRIP) NEGATIVE; KETONES 20; LEUKOCYTES TRACE; NITRITE NEGATIVE; PROTEIN (STRIP) 30; SPECIFIC GRAVITY 1.028 (1.000-1.030); UROBILINOGEN 0.2 MG/DL (0.2-1.0)
[2017-07-21 14:53] LABS: ALBUMIN 3.7 g/dL (3.2-4.8); CHLORIDE 109 mEq/L (99-109); SODIUM 143 mEq/L (136-147)
[2017-07-21 14:55] LABS: GLUCOSE 85 mg/dL (70-99); TOTAL PROTEIN 7.2 g/dL (6.4-8.3)
[2017-07-21 14:55] LABS: BACTERIA NONE SEEN /HPF; EPITHELIAL CELLS RARE /HPF; MUCUS TRACE /LPF; RED BLOOD CELLS 0-5 /HPF (0-5); UCUL ADDED? NO; WHITE BLOOD CELLS 0-5 /HPF (0-5)
[2017-07-21 14:57] LABS: TOTAL BILIRUBIN 0.3 mg/dL (0.0-1.0)
[2017-07-21 14:59] LABS: ALKALINE PHOSPHATASE 88 IU/L (3-129); CREATININE 0.9 mg/dL (0.6-1.3); GFR ESTIMATE (CALCULATED) > 59 mL/min/
[2017-07-21 15:00] LABS: UREA NITROGEN (BUN) 11 mg/dL (9-23)
[2017-07-21 15:01] LABS: AST (GOT) 15 IU/L (2-34)
[2017-07-21 15:02] LABS: ALT (GPT) 10 IU/L (3-49)
[2017-07-21 15:06] LABS: TROP-I INTERPRETATION NEGATIVE; TROPONIN-I < 0.01 ng/mL (0.0-0.30)
[2017-07-21 18:57] LABS: BASE EXCESS -0.6 mEq/L (-3 to +3); BICARBONATE 25.4 mEq/L (22-26); COMMENTS - BLOOD GASES A+C+; METHEMOGLOBIN 1.3 % (0-1.5); PCO2 47 mm Hg (35-45); PO2 106 mm Hg (80-100); SITE LR; pH 7.34 (7.35-7.45)
[2017-07-21 18:58] LABS: DEVICE NC; O2 FLOW 3 L/MIN; TOTAL RESP RATE 14 resp/min
[2017-07-21 20:37] LABS: SALICYLATE < 5.0 MG/DL (15-30)
[2017-07-21 20:38] LABS: ACETAMINOPHEN (TYLENOL) < 10 mcg/mL (10-30)
[2017-07-22] VITALS (7 sets, daily range): BP systolic 110–137; BP diastolic 59–65
[2017-07-22 05:26] LABS: HEMATOCRIT 33.3 % (36.0-46.0); MCH 30.1 PG (29.0-34.0); MCV 100.3 FL (83-99); PLATELET COUNT 308 K/uL (156-360); RBC DIS.WIDTH-CV 13.5 % (11.8-14.6); RBC DIS.WIDTH-SD 50.1 % (39-53); RED BLOOD COUNT 3.32 M/uL (3.80-5.20); WHITE BLOOD COUNT 6.4 K/uL (4.1-10.2)
[2017-07-22 05:55] LABS: CHLORIDE 112 MEQ/L (99-109); CREATININE 0.6 MG/DL (0.6-1.3); GFR ESTIMATE (CALCULATED) > 59 mL/min/; POTASSIUM 4.1 MEQ/L (3.7-5.4); SODIUM 142 MEQ/L (136-147); UREA NITROGEN (BUN) 14 mg/dL (9-23)
[2017-07-22 06:22] LABS: GLUCOSE 111 mg/dL (70-99)
[2017-07-22 07:42] LABS: TROP-I INTERPRETATION NEGATIVE; TROPONIN-I < 0.01 ng/mL (0.0-0.30)
[2017-07-22 16:59] LABS: AMPHETAMINE NEGATIVE (500 ng/mL); BARBITURATES NEGATIVE (200 ng/mL); BENZODIAZEPINES PRESUMPTIVE POSITIVE (150 ng/mL); BUPRENORPHINE NEGATIVE (10 ng/mL); COCAINE NEGATIVE (150 ng/mL); METHADONE NEGATIVE (200 ng/mL); METHAMPHETAMINE NEGATIVE (500 ng/mL); OPIATES (MORPHINE) NEGATIVE (100 ng/mL); OXYCODONE NEGATIVE (100 ng/mL); PHENCYCLIDINE NEGATIVE (25 ng/mL); PROPOXYPHENE NEGATIVE (300 ng/mL); THC CANNABINOIDS NEGATIVE (50 ng/mL); TRICYCLIC ANTIDEPRESSANTS NEGATIVE (300 ng/mL)
[2017-07-22 17:30] LABS: BENZODIAZEPINES, URINE SCREEN Negative (200 ng/mL)
[2017-07-23 03:56] VITALS: BP 145/93
[2017-07-23 05:10] LABS: BASOPHIL (%) 0.1 % (0-1); EOSINOPHIL (%) 0.1 % (0-5); HEMATOCRIT 31.2 % (36.0-46.0); HEMOGLOBIN 9.8 G/DL (11.9-15.5); IMMATURE GRANULOCYTE (%) 0.4 % (0.0-0.7); LYMPHOCYTE (%) 24.4 % (15-42); MCH 30.8 PG (29.0-34.0); MCHC 31.4 G/DL (30.0-36.0); MCV 98.1 FL (83-99); MONOCYTE (%) 12.5 % (3-12); NEUTROPHIL (%) 62.5 % (45-76); PLATELET COUNT 295 K/uL (156-360); RBC DIS.WIDTH-CV 13.3 % (11.8-14.6); RBC DIS.WIDTH-SD 47.9 % (39-53); RED BLOOD COUNT 3.18 M/uL (3.80-5.20)
[2017-07-23 05:39] LABS: CHLORIDE 108 MEQ/L (99-109); CREATININE 0.7 MG/DL (0.6-1.3); GFR ESTIMATE (CALCULATED) > 59 mL/min/; GLUCOSE 90 mg/dL (70-99); MAGNESIUM 1.9 mg/dl (1.3-2.7); POTASSIUM 3.5 MEQ/L (3.7-5.4); SODIUM 141 MEQ/L (136-147); UREA NITROGEN (BUN) 13 mg/dL (9-23)
[2017-07-23 08:25] VITALS: BP 124/56
[2017-07-23 09:52] LABS: APPEARANCE CLEAR ((CLEAR)); BILIRUBIN NEGATIVE; BLOOD NEGATIVE; COLOR STRAW ((YELLOW)); GLUCOSE (STRIP) NEGATIVE; KETONES NEGATIVE; LEUKOCYTES TRACE; NITRITE NEGATIVE; PROTEIN (STRIP) NEGATIVE; SPECIFIC GRAVITY 1.006 (1.000-1.030); UROBILINOGEN 0.2 MG/DL (0.2-1.0)
[2017-07-23 10:16] LABS: BACTERIA RARE /HPF; EPITHELIAL CELLS RARE /HPF; MUCUS TRACE /LPF; RED BLOOD CELLS 0-5 /HPF (0-5); UCUL ADDED? YES
[2017-07-23] MEDS ORDERED: CYMBALTA60 MG PO (11:08)
[2017-07-23] MEDS ORDERED: CARDIZEM LA180 MG PO (11:08)
[2017-07-23] MEDS ORDERED: PRESERVISION T1 EACH PO (11:09)
[2017-07-23] MEDS ORDERED: AMBIEN5 MG PO (11:10)
[2017-07-23] MEDS ORDERED: ATIVAN0.5 MG PO (11:11)
[2017-07-23] MEDS ORDERED: TYLENOL ARTHRI650 MG PO (11:12)
[2017-07-23] MEDS ORDERED: REMERON15 M2 PO (11:13)
[2017-07-23] MEDS ORDERED: HYDROCHLOROTH12.5 M3 PO (11:13)
[2017-07-23] MEDS ORDERED: CYANOCOBALAM1000 MCG PO (11:16)
[2017-07-23] MEDS ORDERED: IPRATROPIUM BRO30 ML NS (11:19)
[2017-07-23 12:00] VITALS: BP 130/62
== END 2017-07-23 15:00 | disposition home or self-care (01) ==
LOC: EME 12:57 → 4SOUTH 19:46 → EDOF 19:46 → ENRESERV 19:53 → 4SOUTH 21:58
PROVIDERS: Emergency Medicine; Hospitalist; Internal Medicine
DX: R09.02 Hypoxemia (principal); G93.41 Metabolic encephalopathy; R07.89 Other chest pain; F60.9 Personality disorder, unspecified; J44.9 Chronic obstructive pulmonary disease, unspecified; M54.9 Dorsalgia, unspecified; M79.661 Pain in right lower leg; R53.1 Weakness; Z86.718 Personal history of other venous thrombosis and embolism; I47.1 Supraventricular tachycardia; R42 Dizziness and giddiness; H35.30 Unspecified macular degeneration; G43.809 Other migraine, not intractable, without status migrainosus; G89.29 Other chronic pain; R10.9 Unspecified abdominal pain; F32.9 Major depressive disorder, single episode, unspecified; K21.9 Gastro-esophageal reflux disease without esophagitis; Z85.828 Personal history of other malignant neoplasm of skin; F17.200 Nicotine dependence, unspecified, uncomplicated; Z96.653 Presence of artificial knee joint, bilateral; Z90.79 Acquired absence of other genital organ(s); Z82.49 Family history of ischemic heart disease and other diseases of the circulatory system; Z82.3 Family history of stroke; Z88.8 Allergy status to other drugs, medicaments and biological substances; Z88.5 Allergy status to narcotic agent; Z88.1 Allergy status to other antibiotic agents; Z87.11 Personal history of peptic ulcer disease
CPT/HCPCS: 36600; 70450; 71045; 71046; 71275; 80048; 80053; 81003; 82140; 82803; 82948; 83605; 83735; 83880; 84484; 84999; 85025; 85027; 87040; 87086; 93005; 94640; 94640 76; 94799; 99202; 99281; 99285; G0378; G0480; G8978 GP CJ; G8979 GP CI; J1630; J1644; J2930; J7030

== ENCOUNTER 2017-08-06 09:31 | Emergency (ER) | payer OTHER ==
[~2017-08-06] VITALS: Ht 157.5 cm; Wt 55.7 kg
[~2017-08-06 09:31] MED LIST changes: +CARDIZEM LA180 MG PO; +HYDROCHLOROTH12.5 M3 PO; +IPRATROPIUM BRO30 ML NS
[2017-08-06 10:49] LABS: CHLORIDE 107 mEq/L (99-109); POTASSIUM 3.8 mEq/L (3.7-5.4); SODIUM 143 mEq/L (136-147)
[2017-08-06 10:51] LABS: GLUCOSE 103 mg/dL (70-99)
[2017-08-06 10:55] LABS: CREATININE 0.7 mg/dL (0.6-1.3); GFR ESTIMATE (CALCULATED) > 59 mL/min/
[2017-08-06 10:56] LABS: UREA NITROGEN (BUN) 11 mg/dL (9-23)
[2017-08-06 10:58] LABS: LIPASE 31 U/L (1.0-51.0)
[2017-08-06 10:59] LABS: BASOPHIL (%) 0.4 % (0-1); EOSINOPHIL (%) 0.8 % (0-5); EOSINOPHIL COUNT 0.1 K/uL (0-0.3); HEMOGLOBIN 12.1 G/DL (11.9-15.5); IMMATURE GRANULOCYTE (%) 0.4 % (0.0-0.7); LYMPHOCYTE (%) 20.9 % (15-42); LYMPHOCYTE COUNT 1.6 K/uL (1.0-2.8); MCH 30.5 PG (29.0-34.0); MCHC 31.8 G/DL (30.0-36.0); MCV 95.7 FL (83-99); MONOCYTE (%) 9.6 % (3-12); MONOCYTE COUNT 0.7 K/uL (0-0.8); NEUTROPHIL (%) 67.9 % (45-76); NEUTROPHIL COUNT 5.2 K/uL (1.8-6.4); PLATELET COUNT 275 K/uL (156-360); RBC DIS.WIDTH-CV 13.7 % (11.8-14.6); RBC DIS.WIDTH-SD 48.7 % (39-53); RED BLOOD COUNT 3.97 M/uL (3.80-5.20); WHITE BLOOD COUNT 7.7 K/uL (4.1-10.2)
[2017-08-06 11:00] VITALS: BP 150/91
[2017-08-06] MEDS ORDERED: ZOFRAN4 MG PO (11:43)
[2017-08-06] MEDS ORDERED: IMODIUM A-D2 M2 PO (11:43)
[2017-08-06] MEDS ORDERED: PERCOCET 5/31 TABLET PO (12:06)
== END 2017-08-06 11:44 | disposition home or self-care (01) ==
LOC: EME 09:31
PROVIDERS: Emergency Medicine
DX: M54.5 Low back pain (principal); K52.9 Noninfective gastroenteritis and colitis, unspecified; R53.1 Weakness; G89.29 Other chronic pain; F03.90 Unspecified dementia, unspecified severity, without behavioral disturbance, psychotic disturbance, mood disturbance, and anxiety; Z87.442 Personal history of urinary calculi; Z90.49 Acquired absence of other specified parts of digestive tract; Z72.0 Tobacco use
CPT/HCPCS: 80048; 81003; 83690; 85025; 93005; 99281; 99284